=== PATIENT | female | born 1990 | race Caucasian/White ===

== ENCOUNTER 2019-08-15 10:24 | Outpatient (CLI) | payer BC, SELFPAY ==
--- NOTE | 2019-08-15 10:39 | XRR_ITS ---
PROCEDURE INFORMATION: Exam: XR Right Foot Complete Exam date and time: 08/15/2019 10:53 AM Age: 28 years old Clinical indication: Pain; Heel; Right; Additional info: R heel pain x 6 months TECHNIQUE: Imaging protocol: XR Right foot. Views: Frontal, lateral, and oblique views. COMPARISON: No relevant prior studies available. FINDINGS: Bones/joints: A small plantar calcaneal ossified spur is present. A bipartite medial sesamoid of the first metatarsophalangeal joint is present, a normal variant. Soft tissues: Normal. XR/XR foot RT min 3V* [id number] IMPRESSION: Plantar calcaneal spur.
== END 2019-08-15 10:25 | disposition home or self-care (01) ==
LOC: RAD 10:29
PROVIDERS: Family Provider Family Medicine; PCP Family Medicine; Visit Provider Nurse Practitioner Family
DX: M77.31 Calcaneal spur, right foot (principal); M79.671 Pain in right foot
CPT/HCPCS: 73630

== ENCOUNTER → 2020-05-30 14:51 | Outpatient (BNVA) | payer BC, SELFPAY | PROVIDERS: Family Provider Family Medicine; PCP Family Medicine; Visit Provider Obstetrics & Gynecology | DX: Z32.01 Encounter for pregnancy test, result positive (principal) | CPT/HCPCS: 81025 ==

== ENCOUNTER → 2020-06-06 14:12 | Outpatient (BNVA) | payer BC, SELFPAY | PROVIDERS: Family Provider Family Medicine; PCP Family Medicine; Visit Provider Obstetrics & Gynecology | DX: Z34.81 Encounter for supervision of other normal pregnancy, first trimester (principal) | CPT/HCPCS: 84315; 87086 ==

== ENCOUNTER → 2020-06-07 10:50 | Outpatient (BNVA) | payer BC, SELFPAY | PROVIDERS: Family Provider Family Medicine; PCP Family Medicine; Visit Provider Obstetrics & Gynecology | DX: Z34.90 Encounter for supervision of normal pregnancy, unspecified, unspecified trimester (principal) | CPT/HCPCS: 82950 ==

== ENCOUNTER → 2020-06-12 08:40 | Outpatient (BNVA) | payer BC, SELFPAY | PROVIDERS: Family Provider Family Medicine; PCP Family Medicine; Visit Provider Obstetrics & Gynecology | DX: Z34.01 Encounter for supervision of normal first pregnancy, first trimester (principal) | CPT/HCPCS: 80307; 84315; 84443; 85027; 86592; 86762; 86803; 86850; 86900; 87086; 87340; 87806 ==

== ENCOUNTER → 2020-06-27 14:55 | Outpatient (BNVA) | payer BC, SELFPAY | PROVIDERS: Family Provider Family Medicine; PCP Nurse Practitioner Family; Visit Provider Obstetrics & Gynecology | DX: Z34.00 Encounter for supervision of normal first pregnancy, unspecified trimester (principal); Z12.4 Encounter for screening for malignant neoplasm of cervix | CPT/HCPCS: 84315; 87491; 87591; 88175 ==

== ENCOUNTER → 2020-07-18 13:04 | Outpatient (BNVA) | payer BC, SELFPAY | PROVIDERS: Family Provider Family Medicine; PCP Nurse Practitioner Family; Visit Provider Obstetrics & Gynecology | DX: Z34.01 Encounter for supervision of normal first pregnancy, first trimester (principal) | CPT/HCPCS: 81000; 87086 ==

== ENCOUNTER → 2020-07-26 13:57 | Outpatient (BNVA) | payer BC, SELFPAY | PROVIDERS: Family Provider Family Medicine; PCP Nurse Practitioner Family; Visit Provider Nurse Practitioner Women's Health | DX: Z34.01 Encounter for supervision of normal first pregnancy, first trimester (principal) | CPT/HCPCS: 84315; 87086 ==

== ENCOUNTER → 2020-08-16 13:57 | Outpatient (BNVA) | payer BC, SELFPAY | PROVIDERS: Family Provider Family Medicine; PCP Nurse Practitioner Family; Visit Provider Obstetrics & Gynecology | DX: O26.899 Other specified pregnancy related conditions, unspecified trimester (principal); N89.8 Other specified noninflammatory disorders of vagina; Z3A.00 Weeks of gestation of pregnancy not specified | CPT/HCPCS: 83986; 84315; 87210 ==

== ENCOUNTER → 2020-09-19 10:08 | Outpatient (BNVA) | payer BC, SELFPAY | PROVIDERS: Family Provider Family Medicine; PCP Nurse Practitioner Family; Visit Provider Obstetrics & Gynecology | DX: Z34.02 Encounter for supervision of normal first pregnancy, second trimester (principal) | CPT/HCPCS: 84315; 87086 ==

== ENCOUNTER → 2020-10-16 08:30 | Outpatient (BNVA) | payer BC, SELFPAY | PROVIDERS: Family Provider Family Medicine; PCP Nurse Practitioner Family; Visit Provider Obstetrics & Gynecology | DX: Z34.02 Encounter for supervision of normal first pregnancy, second trimester (principal) | CPT/HCPCS: 82950; 84315; 85025 ==

== ENCOUNTER 2020-12-01 09:40 | Outpatient (CLI) | payer BC, SELFPAY ==
[2020-12-01] VITALS (7 sets, daily range): BP systolic 132–157; BP diastolic 80–95; PULSE 95–125; RESP 18; TEMP 36.8; BMI 42.5
[2020-12-01 11:00] LABS: Urine Appearance Hazy (CLEAR); Urine Color Yellow (Yellow); pH Urine 6 (5-7)
[2020-12-01 11:01] LABS: Bilirubin Urine Neg (Negative); Blood Urine Trace (Negative); Glucose Urine UA Norm (Normal); Ketones Urine Negative (Negative); Leukocyte Esterase Urine 2+ (Negative); Nitrate Urine Negative (Negative); Protein Urine Neg (Negative); Urobilinogen Urine 1 mg/dL (Negative)
[2020-12-01 11:02] LABS: Bacteria Urine 2+ /hpf; Mucus Urine 1+ /hpf; RBC Urine 0-4 /hpf (0-2); Squamous Epithelial Cell Urine 15-25 /hpf (0-5); WBC Urine 40-55 /hpf (0-5)
[2020-12-01 11:03] LABS: Add Urine Culture? No
[2020-12-01 11:04] LABS: Urine Creatinine 182 mg/dL (28-217)
[2020-12-01 11:05] LABS: UPRO/UCREAT Ratio 0.19 mg/mg CR; Urine Protein Random 34 mg/dL
--- NOTE | 2020-12-01 11:10 | PM.ACPR ---
Procedure/Consent Procedure Narrative: [place]STRESS TEST: [place] [facility] [place] Indication: 30-year-old 1 para 0 at 35 weeks and 0 days Date and time of test: Baseline: 145 Variability: Moderate variability Accelerations: Accelerations present Decelerations: No decelerations Tocometry: No contractions INTERPRETATION: NST reactive, continue kick counts
== END 2020-12-01 11:30 | disposition home or self-care (01) ==
LOC: OPOB 09:50 → OBGYN 09:51
PROVIDERS: Family Provider Family Medicine; PCP Nurse Practitioner Family; Visit Provider Obstetrics & Gynecology
DX: O36.8193 Decreased fetal movements, unspecified trimester, fetus 3 (principal); Z3A.35 35 weeks gestation of pregnancy
CPT/HCPCS: 59025; 81001; 82570; 84156; 99211

== ENCOUNTER → 2020-12-05 08:00 | Outpatient (BNVA) | payer BC, SELFPAY | PROVIDERS: Family Provider Family Medicine; PCP Nurse Practitioner Family; Visit Provider Obstetrics & Gynecology | DX: Z34.90 Encounter for supervision of normal pregnancy, unspecified, unspecified trimester (principal); L29.9 Pruritus, unspecified | CPT/HCPCS: 80053; 82239; 84315 ==

== ENCOUNTER → 2020-12-27 09:08 | Outpatient (BNVA) | payer BC, SELFPAY | PROVIDERS: Family Provider Family Medicine; PCP Nurse Practitioner Family; Visit Provider Obstetrics & Gynecology | DX: Z34.02 Encounter for supervision of normal first pregnancy, second trimester (principal) | CPT/HCPCS: 87635 ==

== ENCOUNTER 2020-12-30 18:52 | Inpatient (IN) | payer BC, SELFPAY ==
[2020-12-30] VITALS (9 sets, daily range): BP systolic 127–176; BP diastolic 75–94; PULSE 81–109; RESP 17; BMI 44.6
[2020-12-30] MEDS: lactated ringers 1,000 ML 125 ML IV (20:40)
[2020-12-30 20:41] LABS: Add Urine Microscopic? NO; Charge for UA Resulting for Rev
[2020-12-30 20:54] LABS: Basophils % 0.1 %; Eosinophils % 0.4 %; Hemoglobin 12.4 g/dL (11.5-15.3); Lymphocytes # 1.7 10^3/uL (0.8-4.8); Lymphocytes % 16.4 %; Mean Corpuscular HGB Conc 33.5 g/dL (30.0-36.0); Mean Corpuscular Hemoglobin 30.1 pg (28.0-34.0); Mean Corpuscular Volume 89.8 fL (81-99); Monocytes # 0.5 10^3/uL (0.2-0.9); Monocytes % 4.5 %; Neutrophils # 7.98 10^3/uL (1.8-7.7); Nucleated Red Blood Cells % 0 %; Platelet Count 249 10^3/cmm (130-400); Red Blood Count 4.12 10^6/uL (4.1-5.3); Red Cell Distribution Width 13.5 % (12.1-15.1); White Blood Count 10.2 10^3/uL (4.0-10.0)
[2020-12-30 21:00] LABS: Bilirubin Urine Neg (Negative); Blood Urine Neg (Negative); Glucose Urine UA Norm (Normal); Ketones Urine Negative (Negative); Leukocyte Esterase Urine Negative (Negative); Nitrate Urine Negative (Negative); Protein Urine Neg (Negative); Urine Appearance Clear (CLEAR); Urine Color Yellow (Yellow); Urobilinogen Urine Norm (Negative); pH Urine 6 (5-7)
[2020-12-30 21:07] LABS: Urine Creatinine 44 mg/dL (28-217); Urine Protein Random 7 mg/dL
[2020-12-30 21:08] LABS: UPRO/UCREAT Ratio 0.16 mg/mg CR
[2020-12-30 21:15] LABS: Alanine Aminotransferase 22 U/L (0-33); Albumin Level 3.4 g/dL (3.5-5.2); Alkaline Phosphatase 123 IU/L (35-105); Aspartate Amino Transferase 22 U/L (0-32); Blood Urea Nitrogen 9 mg/dL (6-20); Calcium 9.4 mg/dL (8.5-10.5); Carbon Dioxide 20 mmol/L (22-29); Chloride 105 mmol/L (98-107); Globulin 2.7 g/dL (1.3-4.6); Glomerular Filtration Rate 116.6 mL/min (90-130); Glucose 87 mg/dL (65-115); Osmolality Calculated 286 mOsm/kg (285-295); Sodium 139 mmol/L (136-145); Total Bilirubin 0.2 mg/dL (0.15-1.2); Total Protein 6.1 g/dL (6.6-8.7); Uric Acid 5.5 mg/dL (2.4-5.7)
[2020-12-30 21:19] LABS: Anion Gap 18.2 (5-19); Potassium 4.2 mmol/L (3.5-5.1)
[2020-12-30] MEDS: alum-mag-hydroxide-sime 30 mL UDC PO (21:22)
[2020-12-30] MEDS: ampicillin 2,000 MG in sodium chloride 0.9% (plus) 50 ML 100 MG IV (21:22)
[2020-12-30] MEDS: miSOPROStol 100 mcg tablet 25 MCG VAGINAL (22:18)
[2020-12-31] VITALS (98 sets, daily range): BP systolic 110–158; BP diastolic 56–100; PULSE 60–134; RESP 16–17; TEMP 36.4–37.2; O2SAT 97–100
[2020-12-31] MEDS: ampicillin 1,000 MG in sodium chloride 0.9% (plus) 50 ML 100 MG IV ×6 (01:23→22:11)
[2020-12-31] MEDS: lactated ringers 1,000 ML 125 ML IV ×3 (02:22→23:07)
[2020-12-31] MEDS: oxytocin 30 UNIT/500 ML BAG IV (08:30)
[2020-12-31] MEDS: alum-mag-hydroxide-sime 30 mL UDC PO (09:59)
--- NOTE | 2020-12-31 10:52 | P.ANESASSM_ITS ---
Pre-Anesthetic Assessment Pre-Anesthetic Assessment: Height/Weight: Height 1.75 m Weight 136.985 kg Pulse Resp BP Pulse Ox 85 17 125/59 99 12/31/20 10:35 12/31/20 08:50 12/31/20 10:35 12/31/20 10:23 Preop Diagnosis: IUP Was Beta Milind taken within 24 hours: N/A Was Clonidine taken within 24 hours: N/A Social: Social History: No alcohol and No tobacco Exam: Pre-Anes Outpt Exam: alert, oriented x 3, clear to auscultation bilaterally and regular rate & rhythm Airway: Submandibular: WNL Cervical ROM: WNL MP: 2 Dentition: Full Additional comments: Braces Metabolic: Metabolic: Morbid obesity Anesthetic Plan: ASA status: 2 Anesthesia: Regional (specify below) (Labor epidural) Risk of > 500 ml blood loss (7ml/kg in children): No Meds/Allergies Current Medications: Current Medications Generic Name Dose Route Start Last Admin Trade Name Freq PRN Reason Stop Dose Admin Al Hydrox/Mg [place] x/Simethicone 30 ml 12/30/20 19:44 12/31/20 09:59 Tigc-Wrz-Ksxljyo de-Yoana 30 Ml Udc PO 30 ml Q4H PRN Administration INDIGESTION Lactated Ringer's 1,000 mls @ 125 m ls/hr 12/30/20 19:44 12/31/20 05:26 Lactated Ringers IV 125 mls/hr .Q8H PRN Infusion LABOR INDUCTION Ampicillin Sodium 1,000 mg/ 50 mls @ 100 mls/ hr 12/30/20 23:45 12/31/20 09:49 Sodium Chloride IV 100 mls/hr Q4H BERTRAND Administration Protocol Oxytocin 30 unit in 500 ml s @ 1 mls/hr 12/31/20 06:41 12/31/20 08:45 Pitocin IV 3 milliunit/min .Q24H PRN 3 mls/hr LABOR INDUCTION Titration Protocol 1 MILLIUNIT/MIN PFSH Anesthesia PFSH: Medical History Infertility States that she has been trying to get since 2012 and underwent evaluation in [address] Nolan with multiple test that were all negative. She finally gave up on trying to get which is when she go t in 2020. No pertinent past medical history Denies diabetes, asthma, hypertension, seizures, DVT/PE. PMD: Polina Francis PCOS (polycystic ovarian syndrome) Diagnosed in 2014---reports she was diagnosed on an ultrasound in Dr. Nolan's office in [place].. This is a questionable diagnosis because she states she is always had regular 30-day cycles. We will reassess this Surgical History History of tonsillectomy Age of 1 Family History Grandfather Colon cancer Paternal-- Dx age 72 Grandmother Diabetes Maternal Mother Hypertension Denies family history of Ovarian cancer Heart disease Breast cancer Uterine cancer Thyroid disease Stroke Social History Smoking and tobacco status: never smoked Alcohol intake: never Female Reproductive History: : 1 Data Anesthesia CBC & Chem 7: 12/30/20 20:10 12/30/20 20:10 Other Labs: Laboratory Results - last 48 hr 12/30/20 12/30/20 12/30/20 20:10 20:10 20:10 WBC 10.2 H RBC 4.12 Hgb 12.4 Hct 37.0 MCV 89.8 MCH 30.1 MCHC 33.5 RDW 13.5 Plt Count 249 MPV 11.0 H Neut % (Auto) 78.0 Lymph % (Auto) 16.4 [place] % (Auto) 4.5 Eos % (Auto) 0.4 Baso % (Auto) 0.1 Neut # (Auto) 7.98 H Lymph # (Auto) 1.7 [place] # (Auto) 0.5 Eos # (Auto) 0.0 Baso # (Auto) 0.0 Nucleated RBC % (auto) 0 Nucleated RBCs # 0.0 Sodium 139 Potassium 4.2 Chloride 105 Carbon Dioxide 20 L Anion Gap 18.2 BUN 9 Creatinine 0.6 GFR Calculation 116.6 Glucose 87 Calculated Osmolality 286 Uric Acid 5.5 Calcium 9.4 Total Bilirubin 0.2 AST 22 ALT 22 Alkaline Phosphatase 123 H Total Protein 6.1 L Albumin 3.4 L Globulin 2.7 Urine Color Urine Appearance Urine pH Ur Specific [place] Urine Protein Urine Glucose (UA) Urine Ketones Urine Blood Urine Nitrate Urine Bilirubin Urine Urobilinogen Ur Leukocyte Esterase U Random Total Protein Urine Creatinine Protein/Creatinin Ratio Blood Type A Positive Rho(D) Type Positive / 4+ Antibody Screen Negative 12/30/20 12/30/20 20:35 20:35 WBC RBC Hgb Hct MCV MCH MCHC RDW Plt Count MPV Neut % (Auto) Lymph % (Auto) [place] % (Auto) Eos % (Auto) Baso % (Auto) Neut # (Auto) Lymph # (Auto) [place] # (Auto) Eos # (Auto) Baso # (Auto) Nucleated RBC % (auto) Nucleated RBCs # Sodium Potassium Chloride Carbon Dioxide Anion Gap BUN Creatinine GFR Calculation Glucose Calculated Osmolality Uric Acid Calcium Total Bilirubin AST ALT Alkaline Phosphatase Total Protein Albumin Globulin Urine Color Yellow Urine Appearance Clear Urine pH 6 Ur Specific [place] 1.020 Urine Protein Neg Urine Glucose (UA) Norm Urine Ketones Negative Urine Blood Neg Urine Nitrate Negative Urine Bilirubin Neg Urine Urobilinogen Norm Ur Leukocyte Esterase Negative U Random Total Protein 7 Urine Creatinine 44 Protein/Creatinin Ratio 0.16 Blood Type Rho(D) Type Antibody Screen Cardiac Studies: No Data to Display
--- NOTE | 2020-12-31 11:45 | ANES.PROC ---
Anesthesia Procedures Procedure/Date: 12/31/20 Epidural: Time Out Performed: Yes Consents Signed: Procedure Consent Consent: requested by attending/covering physician, from patient, risks and benefits reviewed and patient agrees to proceed Lumbar Level: L3-L4 Epidural position: sitting Epidural procedure: sterile prep of area, 1% lidocaine to numb the area, 18 g needle, neg for paresthesia, test dose given, 1.5% xylocaine 1:200k epi, placed PCEA, no systemic response, sterile dressing applied and 0.2% Ropiavacaine @ mls/hr (13) Additional Comments: PETE at 7cm, cath at 12cm, no bolus given.
--- NOTE | 2020-12-31 13:30 | P.PN_ITS ---
Subjective Subjective: Interval history: Subjective- Ms. Herrera is doing okay today. She is comfortable after the epidural and feels much better as she was nervous about getting the epidural. She denies any problems today. She hopes that the medication will work to help her get into labor. She has no shortness of breath chest pain, visual changes. She feels like her blood pressure may be elevated from an anxiety standpoint but she is very worried about the whole process. Objective- Blood pressure-138/74 mmHg Pulse-88 beats per minute Temperature-98.4 Fahrenheit Abdomen-gravid, nontender, soft Sterile vaginal exam-4 cm, 50%, -2 station, artificial rupture membranes performed EFM-135, moderate variability, accelerations present, no decelerations Handley-contractions every 2 to 3 minutes Assessment/plan: 30-year-old 1 para 0 at 39 weeks and 2 days gestation undergoing induction of labor -GBS bacteriuria-continue antibiotics -Induction of labor status post Cytotec, currently undergoing Pitocin induction with Pitocin at 20 units with regular contractions. Artificial rupture of membranes performed today. We will reassess in 2 hours for cervical change. -Continuous monitoring -Plan of care reviewed with patient all her questions were answered to her satisfaction Vitals/I&O/Wt Last Vital Signs Temp 97.3 F L 01/01/21 11:17 Pulse 113 H 01/01/21 14:35 Resp 17 12/31/20 20:48 BP 136/77 01/01/21 14:35 Pulse Ox 94 01/01/21 13:01 12/31/20 01/01/21 01/01/21 22:59 06:59 14:59 Intake Total 329.017 / 7124.224 5137.983 / 4475.333 300 / 300 Output Total 1400 / 1400 2200 / 3600 Balance -1070.983 / -18.650 893.983 / 875.333 300 / 300 Weight last 48 hrs Weight 302 lb Physical Exam Urinary Catheter Management^: Inman: Cath Placed During This Visit: yes Reason for Continuing Indwelling Catheter: Required Immobilization for Trauma or Surgery or Anesthesia Urinary Catheter Date of Insertion: 12/31/20 Urinary Catheter Time of Insertion: 10:29 Data : 12/30/20 20:10 12/30/20 20:10 Attestations Medical Necessity Statement*: Patient needs to stay for delivery and recovery Coding Level of Care Code Acute Printing And Stamping Supervisor for g Bria
[2020-12-31] MEDS: calcium carbonate 500 mg Chew Tablet PO (19:54)
[2021-01-01] VITALS (99 sets, daily range): BP systolic 114–163; BP diastolic 55–110; PULSE 84–118; RESP 16–17; TEMP 36.3–37.1; O2SAT 91–100
[2021-01-01] MEDS: ampicillin 1,000 MG in sodium chloride 0.9% (plus) 50 ML 100 MG IV (01:34)
--- NOTE | 2021-01-01 05:05 | PC.NURSE ---
TALK WITH PATIENT Nurse to room to discuss options with patient. Educated patient on status and option to continue to labor and assess change in a couple hours, or to proceed with at this time. Patient requested 10 minutes to discuss with .
--- NOTE | 2021-01-01 05:18 | PC.NURSE ---
RN called into patient room and notified that patient would like to proceed with at this time. Will update
[2021-01-01] MEDS: lactated ringers 1,000 ML 999 ML IV (05:47)
--- NOTE | 2021-01-01 06:03 | PC.NURSE ---
Dr. Hernandez called and notified that she was needed in OR for delivery.
[2021-01-01] MEDS: citric acid-sodium citrate 30 mL UDC PO (06:04)
[2021-01-01] MEDS: famotidine 20 mg/2 mL INJ IVP (06:04)
[2021-01-01] MEDS: metoclopramide 5 mg/mL SDV 2 mL 10 MG IV (06:04)
--- NOTE | 2021-01-01 06:06 | PC.NURSE ---
abdomen prepped with chlorhexadine wipes.
[2021-01-01] MEDS: ceFAZolin 3,000 MG in sodium chloride 0.9% (100 ml) 100 ML 200 MG IV (06:07)
[2021-01-01] MEDS: azithromycin 500 MG in sodium chloride 0.9% 250 ML 250 MG IV (06:09)
--- NOTE | 2021-01-01 06:11 | PC.NURSE ---
Anesthesia at bedside dosing epidural for .
--- NOTE | 2021-01-01 08:02 | ANES.PAUD2 ---
Pre-Anesthetic Update Pre-Anesthetic Assessment: Date of Surgery/Procedure: 01/01/21 Preop Diagnosis: IUP Any changes to Pre-Anesthetic Assessment?: No Labs Last 48hrs: Laboratory Results - last 48 hr 12/30/20 12/30/20 12/30/20 20:10 20:10 20:10 WBC 10.2 H RBC 4.12 Hgb 12.4 Hct 37.0 MCV 89.8 MCH 30.1 MCHC 33.5 RDW 13.5 Plt Count 249 MPV 11.0 H Neut % (Auto) 78.0 Lymph % (Auto) 16.4 [place] % (Auto) 4.5 Eos % (Auto) 0.4 Baso % (Auto) 0.1 Neut # (Auto) 7.98 H Lymph # (Auto) 1.7 [place] # (Auto) 0.5 Eos # (Auto) 0.0 Baso # (Auto) 0.0 Nucleated RBC % (a uto) 0 Nucleated RBCs # 0.0 Sodium 139 Potassium 4.2 Chloride 105 Carbon Dioxide 20 L Anion Gap 18.2 BUN 9 Creatinine 0.6 GFR Calculation 116.6 Glucose 87 Calculated Osmolal ity 286 Uric Acid 5.5 Calcium 9.4 Total Bilirubin 0.2 AST 22 ALT 22 Alkaline Phosphata se 123 H Total Protein 6.1 L Albumin 3.4 L Globulin 2.7 Urine Color Urine Appearance Urine pH Ur Specific Gravit y Urine Protein Urine Glucose (UA) Urine Ketones Urine Blood Urine Nitrate Urine Bilirubin Urine Urobilinogen Ur Leukocyte Hermelinda ase U Random Total Pro tein Urine Creatinine Protein/Creatinin Ratio Blood Type A Positive Rho(D) Type Positive / 4+ Antibody Screen Negative 12/30/20 12/30/20 20:35 20:35 WBC RBC Hgb Hct MCV MCH MCHC RDW Plt Count MPV Neut % (Auto) Lymph % (Auto) [place] % (Auto) Eos % (Auto) Baso % (Auto) Neut # (Auto) Lymph # (Auto) [place] # (Auto) Eos # (Auto) Baso # (Auto) Nucleated RBC % (a uto) Nucleated RBCs # Sodium Potassium Chloride Carbon Dioxide Anion Gap BUN Creatinine GFR Calculation Glucose Calculated Osmolal ity Uric Acid Calcium Total Bilirubin AST ALT Alkaline Phosphata se Total Protein Albumin Globulin Urine Color Yellow Urine Appearance Clear Urine pH 6 Ur Specific Gravit y 1.020 Urine Protein Neg Urine Glucose (UA) Norm Urine Ketones Negative Urine Blood Neg Urine Nitrate Negative Urine Bilirubin Neg Urine Urobilinogen Norm Ur Leukocyte Hermelinda ase Negative U Random Total Pro tein 7 Urine Creatinine 44 Protein/Creatinin Ratio 0.16 Blood Type Rho(D) Type Antibody Screen Vitals: Temperature 98.6 F 01/01/21 02:09 Temperature Source Oral 01/01/21 02:09 Pulse Rate 107 H 01/01/21 05:52 Pulse Rhythm 12/30/20 20:00 Pulse Strength 2+ Slightly Dimin ished 12/30/20 20:00 Respiratory Rate 17 12/31/20 20:48 Respiratory Effort Non-Labored 12/30/20 20:00 Respiratory Depth Normal 12/30/20 20:00 Respiratory Patter n 12/30/20 20:00 Blood Pressure 139/96 01/01/21 05:52 Pulse Oximetry 99 12/31/20 10:23 Oxygen Delivery Me thod 12/31/20 22:25 Exam: Pre-Anes Outpt Exam: alert, oriented x 3, clear to auscultation bilaterally and regular rate & rhythm Additional Exam Findings (including area of procedure): FTP to C/S with epidural Cardiac Studies: No Data to Display
--- NOTE | 2021-01-01 08:17 | PC.NURSE ---
in PACU, pt arrousing, on 2L O2, pt v/s WNL
--- NOTE | 2021-01-01 08:29 | P.OP_ITS ---
Operative Report Date of procedure: January 01, 2021 OPERATIVE REPORT Date of surgery:01/01/2021 Date of dictation: 01/01/2021 Preoperative diagnosis: 30-year-old 1 para 0 at 39 weeks and 3 days, arrest of dilation and descent, morbid obesity with a BMI of 44.6, GBS bacteriuria, macrosomia Postoperative diagnosis/findings: Normal tubes and ovaries bilaterally, baby girl Martina weighing 8 pounds 3 ounces with Apgars of 1 8 and 9 at 1 5 and 10 minutes. Vacuum delivery. Procedure done: Primary low transverse delivery via Pfannenstiel incision Specimens removed/disposition of specimens: Placenta and cord which were discarded Surgeon: Dr. Nicho Aguilera compliance assistant: Clover Urena Mandy Anesthesia: Epidural anesthesia with LMA Estimated blood loss: 900 ml Intravenous fluids: Thousand 500 mL Urine output: 100 mL of blood-tinged urine at the end of procedure similar to what was there prior to the start of procedure. Medications: Single dose of intramuscular Hemabate, Surgicel, rest as per anesthesia records Complications: None, both baby and mother were left to recover in a stable condition Indication for surgery: Ms. Silverman is a 30-year-old 1 para 0 at 39 weeks and 1 day who presented to labor and delivery on 12/30/2020 at 7 PM for scheduled induction of labor. On initial presentation she was closed thick and high. tracing was category 1 and she was having contractions every 5 to 7 minutes but did not know she was having them. She was admitted and because of GBS bacteriuria started on antibiotics for GBS prophylaxis. Lab work done was within normal limits. She had couple of elevated blood pressures as she was very anxious and preeclamptic work-up was done and negative with the protein creatinine ratio 0.16. Repeat blood pressures were normal and she never had any severe elevations. Induction was started with Cytotec which was placed at 10 PM. For as needed she had made cervical change to 1 to 2 cm, 50% and -3 station and was xuan every 2 to 3 minutes and a little uncomfortable. She was observed for the next 4 hours and made some cervical change to 3 cm 50% and -2 station. She was given a break for a couple of hours and induction was continued with Pitocin started at 8:30 AM titrate to maximum of 20 mIU. She tolerated this well and was a little uncom fortable and worried about pain getting worse and an epidural was placed per her request. Throughout this time tracing remained category 1. On exam at 1 PM she was noted to be 4 cm 50% and -2 station and artificial rupture of membranes was performed. She had clear fluid and the head was well applied. Exam done at 7:30 PM showed that she was 4 to 5 cm 50% and -2 station. Decision was made to give a therapeutic rest and Pitocin was turned off she was allowed to eat and Pitocin restarted at about 10:30 PM and was titrated to a maximum of 14 mIU and she had regular contractions every 1 to 2 minutes. She made a little but no cervical change to 6 cm 50% and -2 station and overall had a category 1 tracing other than having early decelerations. She remained 6 cm for 6 hours with no further descent or dilation and based on this decision was made to proceed with delivery. Risks benefits and alternatives discussed with patient and she desired to proceed with delivery. tracing was pelvis category 1. -Consents were signed and patient was taken to the operating room. It was noted that urine was blood-tinged likely secondary from the pressure of the head prior to the start of procedure. PROCEDURE: After consent was obtained, patient was taken to the operating room where epidural anesthesia was bolused without any difficulty she was placed supine on the table with a left lateral wedge. Inman catheter and SCDs were already in place and urine was noted to be mildly blood-tinged at the start of procedure.. The abdomen was shaved and then prepped with prep. Vaginal prep was also performed. She was draped in a sterile fashion. After checking adequacy of anesthesia, a Pfannenstiel incision was made 2 cm above the pubic symphysis. The incision was carried down to the fascia using the Bovie. The fascia was nicked in the midline and the fascial incision was extended laterally using curved Mayos. The inferior aspect of the fascia was grasped with zac clamps and dissected off from the underlying rectus muscle. This was repeated again superiorly without any difficulty. The rectus muscle was . A wilder was made in the peritoneum and the peritoneal incision was carried inferiorly taking care to proceed in layers so as to avoid the bladder. The peritoneal incision was extended superiorly as well. No adhesions were noted from the uterus to the anterior abdominal wall. The uterus was noted to be rotated to the left. The bladder peritoneum was grasped with smooth forceps a bladder flap was created. the bladder blade was replaced thus protecting the bladder. A LOW TRANSVERSE UTERINE INCISION was made with a scalpel till the amniotic membrane was reached. The uterine incision was then extended laterally using bandage scissors. Amniotomy was done with Allis clamps and clear amniotic fluid was drained. The head of the baby was brought up to the level of the incision and was unable to be delivered. Vacuum was applied and there was 1 pop off. Vacuum was applied again and with this head was delivered without any difficulty. The remainder of body followed without any difficulty. The nose and mouth were suctioned, the umbilical cord was clamped and cut and the baby was handed off to the waiting Doctor- Dr. Hernandez. The placenta was delivered spontaneously with fundal massage. It was noted to be intact and was discarded. . The uterus was exteriorized. The interior of the uterus was cleaned of all clot and debris and was noted to be very boggy. Uterine massage was performed and she was given a single dose of Hemabate and with this the uterine tone improved The uterine incision was closed with 0 Vicryl in a running interlocking manner. Good hemostasis and reapproximation was obtained. Lhdutk-at-dosfa sutures were placed to obtain hemostasis. She had a 1 cm extension on the left side inferiorly which was repaired without any difficulty. Good hemostasis was achieved. The abdomen was irrigated and the gutters were cleaned of clot and debris. Normal tubes and ovaries were noted bilaterally. The uterus was placed back into the abdomen and uterine incision was noted to be hemostatic. Surgicel was placed over the uterine incision. The peritoneum was closed with a 2-0 plain in a continuous stitch. The rectus muscle was reapproximated with 2-0 plain suture in a mattress stitch. Good hemostasis was noted in the rectus muscle layer. The fascia was inspected for any defects and none were found and the fascia was closed with 0 Vicryl in continuous stitch. The subcutaneous plane was then irrigated and hemostasis was obtained using the Bovie. The subcutaneous plane was then reapproximated using 2-0 plain suture in a continuous manner. The skin was then closed with 4-0 Monocryl in a subcuticular fashion. Good reapproximation and hemostasis was noted. Steri- Strips were applied. The incision was dressed with Telfa ,ABD and paper tape. The fundus was noted to be firm at the end of the procedure and excess blood was expressed from the vagina. The patient was left to recover in a stable condition. This documentation was created by [employer] commercial food instructor software (known for inherent commercial food instructor error). Every effort was made to assure accuracy of commercial food instructor. Any obvious errors or omissions should be clarified with the author of the document. Pre-op Diagnosis: IUP History History History 1 Term 1 Miscarriages/Ectopic 0 0 Living Children 1 Other History: 1 Para 1001 CDX 1 1---> 01/01/2021--> primary low transverse delivery by Dr. Aguilera at [facility] for arrest of dilation and descent at 7 cm. Baby girl Martina Milner weighing 8 pounds 3 ounces. Left inferior 1 cm extension.
[2021-01-01] MEDS: dextrose 5%-lactated ringers 1,000 ML 125 ML IV (12:00)
[2021-01-01] MEDS: HYDROcodone-acetaminophen 5-325 mg Tablet PO ×2 (14:40→20:39)
--- NOTE | 2021-01-01 14:55 | ANE.PACU2 ---
Inpatient post-anesthesia follow up: Airway intact: Yes Vital signs: Temperature 97.3 F Pulse Rate 114 Respiratory Rate 17 Blood Pressure 131/69 Pulse Oximetry 94 Oxygen Delivery Me thod Room Air Oxygen Flow Rate Fraction of Inspir ed Oxygen Hydration adequate: Yes Nausea and vomiting: No Pain level: 2 Mental status: Baseline
[2021-01-01] MEDS: docusate sodium 100 mg Capsule PO (18:32)
[2021-01-01 20:15] LABS: Hematocrit 28.5 % (37.0-47.0); Hemoglobin 9.6 g/dL (11.5-15.3); Mean Corpuscular HGB Conc 33.7 g/dL (30.0-36.0); Mean Corpuscular Hemoglobin 30.6 pg (28.0-34.0); Mean Corpuscular Volume 90.8 fL (81-99); Mean Platelet Volume 11.1 fL (7.4-10.4); Platelet Count 207 10^3/cmm (130-400); Red Blood Count 3.14 10^6/uL (4.1-5.3); Red Cell Distribution Width 13.8 % (12.1-15.1); White Blood Count 10.7 10^3/uL (4.0-10.0)
[2021-01-01] MEDS: heparin 5,000 unit/mL INJ 1 mL 5000 UNIT SUBCUT (21:09)
[2021-01-01] MEDS: ibuprofen 800 mg tablet PO (21:09)
--- NOTE | 2021-01-01 23:56 | PC.NURSE ---
Patient up to walk in hallway with nurse, tolerated well. Patient walked about 100 feet in hallway, wanted to rest and feed and then would call nurse when she was done to walk again. Patient states that she has been using her IS while awake and was educated on importance of this.
[2021-01-02] VITALS (7 sets, daily range): BP systolic 117–137; BP diastolic 64–90; PULSE 98–120; RESP 17; TEMP 35.9–36.4; O2SAT 97–100
--- NOTE | 2021-01-02 01:32 | PC.NURSE ---
Patient called nurse to get up and walk. Patient walked 4 laps around unit in approximately 20-25 minutes and stayed up in room for about 30 more minutes after walking brushing teeth, changing infants diaper, and using IS. Denies any pain at this time and states that it feels good to be up in room. Assisted back to bed and holding infant. at bedside. SCD's in place.
[2021-01-02] MEDS: heparin 5,000 unit/mL INJ 1 mL 5000 UNIT SUBCUT ×3 (04:49→20:31)
--- NOTE | 2021-01-02 06:20 | PM.PN ---
Subjective Subjective: Interval history: SUBJECTIVE: Ms. Silverman is doing well today. She is just a little tired. States that she is a little shaky and thinks it is because she is cold. Denies fever, chills, shortness of breath, chest pain, nausea, vomiting. Is tolerating clears without any difficulty. She has been ambulating well. Wants the catheter to stay in the morning so she can sleep a little bit better. She is finding breast-feeding a little easier now. She states the pain is well controlled with p.o. pain medication and she really likes the abdominal binder. OBJECTIVE/PHYSICAL EXAM: Gen.: No acute distress Heart: S1-S2 heard, regular rate and rhythm Lungs: Clear to auscultation bilaterally Abdomen: Soft, fundus firm below umbilicus, tenderness around incision. Incision: Clean dry and intact with dressing in place Legs: No calf tenderness, +1 bilateral pitting pedal edema. SCDs in place ASSESSMENT AND PLAN: 30-year-old 1 para 1 status post primary delivery, postoperative day #1 -Continue routine care--encourage ambulation and incentive spirometer use -P.o. pain medication as needed -Follow-up CBC at 2 PM today and if stable will discontinue IV--hopefully she has passed gas by then -Full liquid diet for now until passes gas and then advance to regular diet -Anticipate discharge home tomorrow if she continues to do well -Bonding well with baby-obiee consultant today -Urine output adequate-vital signs normal except for mild tachycardia which seems to be resolving now. -Continue to monitor vital signs -SCDs and heparin for DVT prophylaxis-warning signs reviewed with patient. Vitals/I&O/Wt Last Vital Signs Temp 97.5 F L 01/02/21 04:16 Pulse 98 01/02/21 04:16 Resp 17 01/01/21 22:50 BP 137/79 01/02/21 04:16 Pulse Ox 94 01/01/21 13:01 01/01/21 01/01/21 01/02/21 14:59 22:59 06:59 Intake Total 900 / 900 5 / 2004 900 / 2905 Output Total 500 / 500 100 / 600 3900 / 4500 Balance 400 / 400 1005 / 1405 -3000 / -1595 Physical Exam Urinary Catheter Management^: Inman: Cath Placed During This Visit: yes Reason for Continuing Indwelling Catheter: Accurate Measurement of Urinary Output in Critically Ill Patients Urinary Catheter Date of Insertion: 12/31/20 Urinary Catheter Time of Insertion: 10:29 Data : 01/01/21 20:00 12/30/20 20:10 Attestations Medical Necessity Statement*: Patient needs to stay to recover from surgery Coding Level of Care Code Acute Napper Grinder for Elle Fraser
[2021-01-02] MEDS: HYDROcodone-acetaminophen 5-325 mg Tablet PO ×4 (07:00→22:16)
[2021-01-02] MEDS: docusate sodium 100 mg Capsule PO ×2 (09:15→18:27)
[2021-01-02] MEDS: prenatal vitamin Capsule 1 CAP PO (09:15)
[2021-01-02] MEDS: ibuprofen 800 mg tablet PO ×3 (09:15→21:05)
[2021-01-02] MEDS: ferrous sulfate EC 325 mg Tablet PO ×2 (09:16→18:28)
[2021-01-02 15:07] LABS: Basophils % 0.1 %; Eosinophils % 0.5 %; Hematocrit 28.1 % (37.0-47.0); Hemoglobin 9.1 g/dL (11.5-15.3); Lymphocytes # 1.1 10^3/uL (0.8-4.8); Lymphocytes % 12.1 %; Mean Corpuscular HGB Conc 32.4 g/dL (30.0-36.0); Mean Corpuscular Hemoglobin 30.3 pg (28.0-34.0); Mean Corpuscular Volume 93.7 fL (81-99); Mean Platelet Volume 10.7 fL (7.4-10.4); Monocytes # 0.4 10^3/uL (0.2-0.9); Monocytes % 4.4 %; Neutrophils # 7.23 10^3/uL (1.8-7.7); Nucleated Red Blood Cells % 0 %; Platelet Count 201 10^3/cmm (130-400); Red Cell Distribution Width 13.9 % (12.1-15.1); White Blood Count 8.8 10^3/uL (4.0-10.0)
[2021-01-03] VITALS (8 sets, daily range): BP systolic 122–145; BP diastolic 72–88; PULSE 81–122; RESP 18; TEMP 37.1–37.2; O2SAT 100
[2021-01-03] MEDS: heparin 5,000 unit/mL INJ 1 mL 5000 UNIT SUBCUT (05:31)
--- NOTE | 2021-01-03 06:31 | PM.OBGYDC ---
Discharge Providers SAND CUTTING MACHINE OPERATOR Date of Admission: 12/31/20 06:39 Date of Discharge: 01/03/21 Attending Provider at Admission: Nicho Aleman MD Attending Provider at Discharge: Preoperative diagnosis: 30-year-old 1 para 0 at 39 weeks and 3 days, arrest of dilation and descent, morbid obesity with a BMI of 44.6, GBS bacteriuria, macrosomia Postoperative diagnosis/findings: Normal tubes and ovaries bilaterally, baby girl Martina weighing 8 pounds 3 ounces with Apgars of 1 8 and 9 at 1 5 and 10 minutes. Vacuum delivery. Discharge diagnosis: Status post delivery Morbid obesity Procedure done: Primary low transverse delivery via Pfannenstiel incision Indication for surgery: Ms. Silverman is a 30-year-old 1 para 0 at 39 weeks and 1 day who presented to labor and delivery on 12/30/2020 at 7 PM for scheduled induction of labor. On initial presentation she was closed thick and high. tracing was category 1 and she was having contractions every 5 to 7 minutes but did not know she was having them. She was admitted and because of GBS bacteriuria started on antibiotics for GBS prophylaxis. Lab work done was within normal limits. She had couple of elevated blood pressures as she was very anxious and preeclamptic work-up was done and negative with the protein creatinine ratio 0.16. Repeat blood pressures were normal and she never had any severe elevations. Induction was started with Cytotec which was placed at 10 PM. For as needed she had made cervical change to 1 to 2 cm, 50% and -3 station and was xuan every 2 to 3 minutes and a little uncomfortable. She was observed for the next 4 hours and made some cervical change to 3 cm 50% and -2 station. She was given a break for a couple of hours and induction was continued with Pitocin started at 8:30 AM titrate to maximum of 20 mIU. She tolerated this well and was a little uncomfortable and worried about pain getting worse and an epidural was placed per her request. Throughout this time tracing remained category 1. On exam at 1 PM she was noted to be 4 cm 50% and -2 station and artificial rupture of membranes was performed. She had clear fluid and the head was well applied. Exam done at 7:30 PM showed that she was 4 to 5 cm 50% and -2 station. Decision was made to give a therapeutic rest and Pitocin was turned off she was allowed to eat and Pitocin restarted at about 10:30 PM and was titrated to a maximum of 14 mIU and she had regular contractions every 1 to 2 minutes. She made a little but no cervical change to 6 cm 50% and -2 station and overall had a category 1 tracing other than having early decelerations. She remained 6 cm for 6 hours with no further descent or dilation and based on this decision was made to proceed with delivery. Risks benefits and alternatives discussed with patient and she desired to proceed with delivery. tracing was pelvis category 1. -Consents were signed and patient was taken to the operating room. It was noted that urine was blood-tinged likely secondary from the pressure of the head prior to the start of procedure. HOSPITAL COURSE: She underwent an uncomplicated primary delivery on 01/01/2021. She did well on day 0 and was ambulating well, tolerating regular diet, voiding freely, passing flatus. She was breast-feeding without difficulty and bonding well with her daughter. Pain was well-controlled with by mouth pain medication. She denied nausea, vomiting, fever, chills, shortness of breath, leg pain. She had moderate vaginal bleeding. On day # 1 she continued to do well with stable vital signs and stable hemoglobin at 9.4. Her pulse was in the low 100s with an O2 sat of 99 on room air. She was placed on SCDs and heparin throughout her post delivery course for DVT prophylaxis. She was ambulating well and pain was well controlled. Continue to do well on postoperative day #2 with a stable hemoglobin of 9.1. She was discharged home on day 2 in a stable condition, as she desired early discharge. Warning signs for endometritis, wound infection, mastitis, DVT/PE were reviewed with her. Post delivery activity restrictions were also reviewed with her at all her questions were answered to her satisfaction. We will discuss contraception at her 6-week visit. She will monitor her blood pressure and pulse once a day to ensure that it is returning to normal. EXAM AT DISCHARGE: Gen.: No acute distress Heart: S1-S2 heard, regular rate and rhythm Lungs: Clear to auscultation bilaterally Abdomen: Soft, fundus firm below umbilicus, tenderness around incision. Incision: Clean dry and intact with Steri-Strips. Legs: No calf tenderness, [default value] pedal edema. CONDITION AT DISCHARGE: Stable This documentation was created by [employer] overage shortage and damage clerk software (known for inherent overage shortage and damage clerk error). Every effort was made to assure accuracy of overage shortage and damage clerk. Any obvious errors or omissions should be clarified with the author of the document. Primary Care Provider: LAVERN Pate Reason for Visit Reason for Visit: Macrosomia Information Peripartum Data: Delivery Method: Physical Exam Urinary Catheter Management^: [place]: Cath Placed During This Visit: yes, but has since been removed by the nurse Reason for Continuing Indwelling Catheter: Accurate Measurement of Urinary Output in Critically Ill Patients Urinary Catheter Date of Insertion: 12/31/20 Urinary Catheter Time of Insertion: 10:29 Date Urinary Catheter Removed: 01/02/21 Time Urinary Catheter Discontinued: 08:05 Discharge Data Data Completed and Pending: Labs from last 24 hours 01/02/21 14:45 WBC 8.8 RBC 3.00 L Hgb 9.1 L Hct 28.1 L MCV 93.7 MCH 30.3 MCHC 32.4 RDW 13.9 Plt Count 201 MPV 10.7 H Neut % (Auto) 82.0 Lymph % (Auto) 12.1 [place] % (Auto) 4.4 Eos % (Auto) 0.5 Baso % (Auto) 0.1 Neut # (Auto) 7.23 Lymph # (Auto) 1.1 [place] # (Auto) 0.4 Eos # (Auto) 0.0 Baso # (Auto) 0.0 Nucleated RBC % (a uto) 0 Nucleated RBCs # 0.0 Vitals: Last Vital Signs Temp 97.5 F L 01/02/21 04:16 Pulse 81 01/03/21 03:07 Resp 17 01/02/21 22:00 BP 122/80 01/03/21 03:07 Pulse Ox 100 01/02/21 21:07 Discharge Plan Discharge Patient Disposition: Home Condition: Stable Prescriptions: New hydrocodone-acetaminophen 5-325 mg tablet 1 tab PO Q6H Qty: 25 RF: 0 docusate sodium 100 mg Capsule 100 mg PO BID PRN (Reason: constipation) Qty: 30 RF: 0 ibuprofen 800 mg tablet 800 mg PO Q8H Qty: 30 RF: 0 Continued prenat.vits,bradly,wen-nuzv-wshir Tablet 1 tab PO DAILY RF: 0 (DME) breast pump [Pump In Style Advanced] Device See Rx Instructions .ROUTE .MEDSUPPLY Qty: 1 RF: 0 Discharge Orders: Discharge Order (Routine); Ordered 01/03/21 Ordered By: Nicho Aleman Referrals: Nicho Aleman MD [Physician] - Discharge Diet: Usual diet Discharge Activity: Limit activity as instructed Patient Instructions: Opioid Safety Activity Restrictions/Additional Instructions: Pelvic rest for 6 weeks, no heavy lifting for 6 weeks. Monitor blood pressure/pulse once a day and bring log to first visit 2-week incision check and 6-week visit. Discharge Attestations SAND CUTTING MACHINE OPERATOR Time Spent in Discharge Care*: greater than 30 min Coding Level of Care Code Acute Seismograph Supervisor for Elle Fraser
[2021-01-03] MEDS: HYDROcodone-acetaminophen 5-325 mg Tablet PO ×2 (07:15→12:43)
[2021-01-03] MEDS: ferrous sulfate EC 325 mg Tablet PO (08:51)
[2021-01-03] MEDS: prenatal vitamin Capsule 1 CAP PO (08:51)
[2021-01-03] MEDS: docusate sodium 100 mg Capsule PO (08:51)
[2021-01-03] MEDS: ibuprofen 800 mg tablet PO (08:51)
== END 2021-01-03 13:50 | disposition home or self-care (01) | DRG 787 ==
LOC: OBGYN 19:43
PROVIDERS: Admitting Provider Obstetrics & Gynecology; PCP Nurse Practitioner Family; Visit Provider Obstetrics & Gynecology
PROC: 10D00Z1 Extraction of Products of Conception, Low, Open Approach (ICD-10-PCS; CPT 59514; principal; 2021-01-01 06:15)
DX: O32.4XX0 Maternal care for high head at term, not applicable or unspecified (principal); O98.82 Other maternal infectious and parasitic diseases complicating childbirth; O36.63X0 Maternal care for excessive fetal growth, third trimester, not applicable or unspecified; O76 Abnormality in fetal heart rate and rhythm complicating labor and delivery; O99.214 Obesity complicating childbirth; E66.01 Morbid (severe) obesity due to excess calories; Z3A.39 39 weeks gestation of pregnancy; Z37.0 Single live birth
CPT/HCPCS: 36415; 51702; 59025; 59409; 80053; 81003; 82570; 84156; 84550; 85025; 85027; 86850; 86900; 96372; 96374; 96375; 98960; G0378; J0290; J0456; J0690; J1644; J2274; J2370; J2405; J2765; J2795; J3010; J3490; J7030; J7050

== ENCOUNTER → 2021-07-16 15:30 | Outpatient (BNVA) | payer BC, SELFPAY | PROVIDERS: PCP Nurse Practitioner Family; Visit Provider Obstetrics & Gynecology | DX: Z30.9 Encounter for contraceptive management, unspecified (principal) | CPT/HCPCS: 81025 ==

== ENCOUNTER 2021-10-23 08:26 | Outpatient (CLI) | payer BC, SELFPAY ==
--- NOTE | 2021-10-23 08:40 | XRR_ITS ---
PROCEDURE INFORMATION: Exam: XR Abdomen Exam date and time: 10/23/2021 8:52 AM Age: 31 years old Clinical indication: Patient HX: Abdominal pain for 3 weeks TECHNIQUE: Imaging protocol: XR of the abdomen. Views: 2 Views. Upright and supine views. COMPARISON: No relevant prior studies available. FINDINGS: Gastrointestinal tract: Normal. No bowel dilation. Intraperitoneal space: Normal. No free air. Bones/joints: Unremarkable for age. XR/XR acute abdomen series [id number] IMPRESSION: No acute findings.
== END 2021-10-23 08:27 | disposition home or self-care (01) ==
PROVIDERS: PCP Nurse Practitioner Family; Visit Provider Clinical Nurse Specialist Adult Health
DX: R10.9 Unspecified abdominal pain (principal)
CPT/HCPCS: 74022; 80053; 85025

== ENCOUNTER → 2021-10-25 13:05 | Outpatient (BNVA) | payer BC, SELFPAY | PROVIDERS: PCP Nurse Practitioner Family; Visit Provider Obstetrics & Gynecology | DX: R10.9 Unspecified abdominal pain (principal) | CPT/HCPCS: 76830 ==

== ENCOUNTER 2021-11-07 07:59 | Day surgery (SDC) | payer BC, SELFPAY ==
[2021-11-06 11:58] VITALS: BMI 42.0
[2021-11-07] VITALS (7 sets, daily range): BP systolic 102–153; BP diastolic 50–81; PULSE 73–95; RESP 14–16; TEMP 36.3–37.5; O2SAT 97–98
[2021-11-07] MEDS: sodium chloride 0.9% 1,000 ML 30 ML IV (08:24)
[2021-11-07 08:27] LABS: OR HCG Qualitative Urine Negative (Negative)
[2021-11-07 08:49] LABS: Basophils % 0.3 %; Eosinophils % 0.6 %; Hematocrit 36.3 % (37.0-47.0); Hemoglobin 11.8 g/dL (11.5-15.3); Lymphocytes # 1.5 10^3/uL (0.8-4.8); Lymphocytes % 23.2 %; Mean Corpuscular HGB Conc 32.5 g/dL (30.0-36.0); Mean Corpuscular Hemoglobin 26.9 pg (28.0-34.0); Mean Corpuscular Volume 82.7 fl (81-99); Monocytes # 0.3 10^3/uL (0.2-0.9); Monocytes % 4.6 %; Neutrophils # 4.42 10^3/uL (1.8-7.7); Nucleated Red Blood Cells % 0 %; Platelet Count 223 10^3/cmm (130-400); Red Blood Count 4.39 10^6/uL (4.1-5.3); Red Cell Distribution Width 13.5 % (12.1-15.1); White Blood Count 6.2 10^3/uL (4.0-10.0)
--- NOTE | 2021-11-07 09:15 | P.ANESASSM_ITS ---
Pre-Anesthetic Assessment Height/Weight: Height 1.75 m Weight 129.274 kg Temp Pulse Resp BP Pulse Ox 98.9 F 95 16 153/60 98 11/07/21 08:12 11/07/21 08:12 11/07/21 08:12 11/07/21 08:12 11/07/21 08:12 Preop Diagnosis: Endometrial polyp Operation Date: 11/07/21 09:50 Proposed Procedures p Hysteroscopy, dilation and curettage with polypectomy 99612, 59490, 44350/N84.0(Not Applicable) - Nicho Aleman MD s Dilation And Curettage (D&C)(Not Applicable) - Nicho Aleman MD Familial anesthetic complications: None Was Beta Milind taken within 24 hours: N/A Was Clonidine taken within 24 hours: N/A Last intake: Intake Last Liquid Date 11/06/21 Last Liquid Time 20:30 Last Solid Date 11/06/21 Last Solid Time 20:30 Social No alcohol and No tobacco Exam alert, oriented x 3, clear to auscultation bilaterally and regular rate & rhythm Airway Submandibular: within normal limits Cervical ROM: within normal limits Mallampati: Class II Dentition: full Metabolic Morbid Obesity Neuropsych Anxiety and Depression Anesthetic Plan ASA status: 2 Anesthesia: General Medications/Allergies Home Medications Medication Instructions Recorded Confirmed Last Taken Type No Known Home Medications 11/06/21 11/06/21 Unknown History Allergies Allergy/AdvReac Type Severity Reaction Status Date / Time doxycycline AdvReac Unknown ADR-Gastrointestinal Verified 11/06/21 11:57 Upset Current Medications Generic Name Dose Route Start Last Admin Trade Name Bibi PRN Reason Stop Dose Admin Sodium Chloride 1,000 mls @ 30 mls/hr 11/07/21 08:15 11/07/21 08:24 Sodium Chloride 0.9% IV 11/08/21 08:14 30 mls/hr .Q24H BERTRAND Administration PFSH Anesthesia Medical History Anxiety and depression Symptomatic on and off since her 20s but has never been on any medic patient Infertility States that she has been trying to get since 2012 and underwent evaluation in [address] Nolan with multiple test that were all negative. She finally gave up on trying to get which is when she got in 2020. No pertinent past medical history Denies diabetes, asthma, hypertension, seizures, DVT/PE. PMD: Polina Francis PCOS (polycystic ovarian syndrome) Diagnosed in 2014---reports she was diagnosed on an ultrasound in Dr. Nolan's office in [place].. This is a questionable diagnosis because she states she is always had regular 30-day cycles. We will reassess this Surgical History History of tonsillectomy Age of 1 Status post delivery 01/01/2021---primary low transverse delivery by Dr. Aguilera for arrest of dilation and descent at 7 cm. Likely CPD ----Double layer closure, low transverse uterine incision, 1 cm left inferior extension Family History Grandfather Colon cancer Paternal-- Dx age 72 Grandmother Diabetes Maternal Mother Hypertension Denies family history of Ovarian cancer Heart disease Breast cancer Uterine cancer Thyroid disease Stroke Female Reproductive History Date of last menstrual period: 09/26/21 Data Anesthesia : 11/07/21 08:34 Short CBC 11/07/21 Range/Units 08:34 WBC 6.2 (4.0-10.0) 10^3/uL Hgb 11.8 (11.5-15.3) g/dL Hct 36.3 L (37.0-47.0) % MCV 82.7 (81-99) fl Plt Count 223 (130-400) 10^3/cmm Neut % (Auto) 71.0 % Neut # (Auto) 4.42 (1.8-7.7) 10^3/uL Cardiac Studies: No Data to Display
[2021-11-07] MEDS: ondansetron 2 mg/ML SDV 2 mL 4 MG IVP (09:17)
[2021-11-07] MEDS: diphenhydrAMINE 50 mg/mL SDV 1mL 12.5 MG IVP (09:20)
[2021-11-07] MEDS: midazolam 1 mg/mL INJ 2 mL 2 MG IVP (09:54)
--- NOTE | 2021-11-07 09:56 | W.PM.OPSUD ---
Surgery/Procedure H&P Update DATE OF PROCEDURE: November 07, 2021 DATE H&P PERFORMED: 10/30/21 H&P UPDATE INFORMATION: I have reviewed H&P completed within last 30 days, I have examined patient prior to procedure, No changes to prior documentation and H&P is in [facility] EMR on date indicated PREOP DIAGNOSIS: Endometrial polyp PLANNED PROCEDURE: Operation Date: 11/07/21 09:50 Proposed Procedures p Hysteroscopy, dilation and curettage with polypectomy 68843, 95570, 12306/N84.0(Not Applicable) - Nicho Aleman MD s Dilation And Curettage (D&C)(Not Applicable) - Nicho Aleman MD
[2021-11-07] MEDS: silver nitrate applicator 1 EACH TOPICAL (10:52)
--- NOTE | 2021-11-07 11:03 | PM.OP ---
Operative Report Date of procedure: November 07, 2021 OPERATIVE REPORT Date of surgery: 11/07/2021 Date of dictation: 11/07/2021 Preoperative diagnosis: Possible endometrial/endocervical polyp Postoperative diagnosis/findings: Examination under anesthesia revealed an 8-week size anteverted to mid position uterus, no adnexal masses. Same-no obvious growths-thickened endometrial tissue, bilateral ostia visualized and normal Procedure done: Hysteroscopy, dilation and fractional curettage Specimens removed/disposition of specimens: Endocervical curettage, endometrial curettings Surgeon: Dr. Nicho Aguilera Physician events assistant: Karoline Anesthesia: Laryngeal mask anesthesia Estimated blood loss: Less than 25 ml Intravenous fluids: 600 mL of LR Urine output: 250 mL of clear urine prior to procedure Medications: As per anesthesia records Complications: None, patient was taken to the recovery room in a stable condition PROCEDURE: After consent was obtained patient was taken to the operating room where she is placed under laryngeal mask anesthesia without any difficulty. She was placed supine on the table in lithotomy position. Care was taken to ensure that her legs were well positioned to avoid pressure points. She was then prepped and draped in the usual sterile fashion. Exam under anesthesia was done at this time which showed findings noted above. The weighted speculum and lateral vaginal wall retractors were placed in the vagina and the cervix was visualized. Cervix appeared normal. The cervix was dilated to a 15 Feng dilator. This allowed placement of a 3 mm hysteroscope into the uterine cavity without any difficulty. Once the hysteroscope was placed in the uterine cavity, the endocervical canal was visualized and appeared normal with thickened tissue-no polyp noted uterine cavity was visualized and findings noted above-no polyp with thickened tissue. The hysteroscope was removed. Fractional curettage was performed with the endocervix being curetted first followed by the endometrium using a curette. Both endocervical and endometrial curettings were sent to pathology . No active bleeding was noted from the cervix. Tenaculum was removed and hemostasis was achieved with silver nitrate. Good hemostasis was achieved. All instruments were removed from the vagina. Patient was cleaned well and anesthesia was reversed without any difficulty. She was taken to the recovery in a stable condition. FOLLOW UP: Follow-up in 2 weeks and 6 weeks with surgeon MEDICATION ON DISCHARGE: Colace 100 mg by mouth every 12 hours when necessary constipation, 30 tablets, no refills Ibuprofen 800 mg by mouth every 8 hours when necessary pain, 3 hysteroscopy dictation tablets, no refills. Continue other home medication DISPOSITION: Home in a stable condition This documentation was created by [employer] engineering specialist technician software (known for inherent engineering specialist technician error). Every effort was made to assure accuracy of engineering specialist technician. Any obvious errors or omissions should be clarified with the author of the document. Pre-op diagnosis: Preop Diagnosis Endometrial polyp
--- NOTE | 2021-11-07 13:47 | ANE.PACU2 ---
Inpatient post-anesthesia follow up: Airway intact: Yes Vital signs: Temperature 97.3 F Pulse Rate 74 Respiratory Rate 16 Blood Pressure 106/81 Pulse Oximetry 98 Oxygen Delivery Me thod Room Air Oxygen Flow Rate Fraction of Inspir ed Oxygen Hydration adequate: Yes Nausea and vomiting: No Pain level: 2 Mental status: Baseline
== END 2021-11-07 11:57 | disposition home or self-care (01) ==
PROVIDERS: Anesthesiology; PCP Nurse Practitioner Family; Visit Provider Obstetrics & Gynecology
PROC: 0UJD8ZZ Inspection of Uterus and Cervix, Via Natural or Artificial Opening Endoscopic (ICD-10-PCS; CPT 58555; principal; 2021-11-07 09:40)
PROC: (CPT 58120; 2021-11-07 09:40)
DX: N84.0 Polyp of corpus uteri (principal)
CPT/HCPCS: 58558; 36415; 81025; 84703; 85025; 86850; 86900; 88305; J1200; J2250; J2405; J2704; J3010; J7030

== ENCOUNTER → 2021-11-21 13:21 | Outpatient (BNVA) | payer BC, SELFPAY | PROVIDERS: PCP Nurse Practitioner Family; Visit Provider Nurse Practitioner Family | DX: R10.9 Unspecified abdominal pain (principal) | CPT/HCPCS: 81000; 81002; 87086 ==

== ENCOUNTER 2021-12-18 06:04 | Outpatient (CLI) | payer BC, SELFPAY ==
--- NOTE | 2021-12-18 | US_ITS ---
WS: [id number] Limited abdomen ultrasound. HISTORY: Umbilical pain. Evaluate for hernia. Ultrasound directed over the anterior abdominal wall. There is a focal defect within the anterior abd ominal wall containing what appears to be fat. No herniation of bowel loops. US/US abdomen limited 14014 IMPRESSION: No herniation of GI tract at the umbilicus during this exam. There does appear to be a small umbilical hernia containing fat. To confirm these findings consid er CT evaluation.
== END 2021-12-18 06:05 | disposition home or self-care (01) ==
PROVIDERS: PCP Nurse Practitioner Family; Visit Provider Nurse Practitioner Family
DX: R10.9 Unspecified abdominal pain (principal)
CPT/HCPCS: 76705

== ENCOUNTER → 2022-08-04 14:48 | Outpatient (BNVA) | payer BC, SELFPAY | PROVIDERS: PCP Clinical Nurse Specialist Adult Health; Visit Provider Clinical Nurse Specialist Adult Health | DX: R35.0 Frequency of micturition (principal); N30.01 Acute cystitis with hematuria | CPT/HCPCS: 81000; 87077; 87086; 87184 ==

== ENCOUNTER → 2023-07-22 14:21 | Outpatient (BNVA) | payer BC, SELFPAY | PROVIDERS: PCP Clinical Nurse Specialist Adult Health; Visit Provider Clinical Nurse Specialist Adult Health | DX: Z00.00 Encounter for general adult medical examination without abnormal findings (principal) | CPT/HCPCS: 80053; 80061; 84443; 85025; 86140 ==

== ENCOUNTER → 2023-07-24 11:19 | Outpatient (BNVA) | payer BC, SELFPAY | PROVIDERS: PCP Clinical Nurse Specialist Adult Health; Visit Provider Clinical Nurse Specialist Adult Health | DX: Z00.00 Encounter for general adult medical examination without abnormal findings (principal); E10.9 Type 1 diabetes mellitus without complications; I10 Essential (primary) hypertension | CPT/HCPCS: 80053; 80061; 84443; 85025; 86140 ==

== ENCOUNTER → 2023-07-30 13:30 | Outpatient (BNVA) | payer BC, SELFPAY | PROVIDERS: PCP Clinical Nurse Specialist Adult Health; Visit Provider Clinical Nurse Specialist Adult Health | DX: D50.9 Iron deficiency anemia, unspecified (principal) | CPT/HCPCS: 82607; 82728; 83540; 83550 ==

== ENCOUNTER 2023-09-20 12:17 | Emergency (ER) | payer BC, SELFPAY ==
[2023-09-20 12:21] VITALS: BP 113/81; PULSE 92; TEMP 36.4; O2SAT 97; BMI 39.0
[2023-09-20] MEDS: famotidine 20 mg/2 mL INJ IVP (12:41)
[2023-09-20] MEDS: methylPREDNISolone sod succ 125 mg/2 mL INJ IVP (12:41)
[2023-09-20] MEDS: diphenhydrAMINE 50 mg/mL SDV 1mL IVP (12:41)
[2023-09-20 13:05] LABS: Basophils % 0.1 %; Eosinophils # 0.1 10^3/uL (0.0-0.8); Eosinophils % 1.1 %; Hematocrit 39.8 % (36-47); Lymphocytes # 3.4 10^3/uL (0.8-4.8); Lymphocytes % 40.2 %; Mean Corpuscular HGB Conc 32.4 g/dL (30-55); Mean Corpuscular Hemoglobin 26.1 pg (27-33); Mean Corpuscular Volume 80.4 fl (85-98); Mean Platelet Volume 10.2 fL (7.4-10.4); Monocytes # 0.3 10^3/uL (0.2-0.9); Monocytes % 3.4 %; Nucleated Red Blood Cells % 0 %; Platelet Count 292 10^3/cmm (157-399); Red Blood Count 4.95 10^6/uL (3.85-5.65); Red Cell Distribution Width 13.4 % (12.1-15.1); White Blood Count 8.55 10^3/uL (3.29-11.43)
[2023-09-20 13:25] LABS: Alanine Aminotransferase 39 U/L (0-33); Albumin Level 4.1 g/dL (3.5-5.2); Alkaline Phosphatase 66 U/L (35-105); Anion Gap 17.3 (5-19); Aspartate Amino Transferase 31 U/L (0-32); Blood Urea Nitrogen 14 mg/dL (6-20); Calcium 8.9 mg/dL (8.5-10.5); Carbon Dioxide 20 mmol/L (22-29); Chloride 103 mmol/L (98-107); Creatinine Clr Calc Pharmacy 147.2923; Globulin 2.5 g/dL (1.3-4.6); Glomerular Filtration Rate 82.6 mL/min (90-130); Glucose 188 mg/dL (65-115); Lipase 27 U/L (13-60); Osmolality Calculated 289 mOsm/kg (285-295); Potassium 3.3 mmol/L (3.5-5.1); Sodium 137 mmol/L (136-145); Total Bilirubin 0.5 mg/dL (0.15-1.2); Total Protein 6.6 g/dL (6.6-8.7)
[2023-09-20] MEDS: ketorolac 30 mg/mL INJ IVP (13:26)
--- NOTE | 2023-09-20 13:54 | ED_ITS ---
HPI - Allergic Reaction 2 General: Chief complaint: Allergic Reaction Stated complaint: allergic reaction Time Seen by Provider: 09/20/23 12:32 History of Present Illness: HPI narrative: Patient presents to the ER with complaints of having allergic reaction. Patient is unsure what caused the symptoms. Her symptoms are hives facial and body swelling, tongue swelling, abdominal pain. This time patient was eating an [email or web address] restaurant just prior to the allergic reaction. She was eating steak tacos and ice tea which she has had eaten before. About 3 days ago while she was in [place] she had a's very similar episode and she was on for sure what caused then. Patient is already taken 25 mg of Benadryl prior to arrival. Patient has not had these episodes prior to these 2 episodes. She is not aware that she is allergic to anything other than doxycycline. Review of Systems 2 General: Reports: 10 or more systems reviewed and unremarkable except in HPI and below PFSH ED 2 PFSH: Medical History Anxiety and depression Symptomatic on and off since her 20s but has never been on any medic patient Infertility States that she has been trying to get since 2012 and underwent evaluation in [address] Nolan with multiple test that were all negative. She finally gave up on trying to get which is when she got in 2019. No pertinent past medical history Denies diabetes, asthma, hypertension, seizures, DVT/PE. PMD: Polina Francis PCOS (polycystic ovarian syndrome) Diagnosed in 2014---reports she was diagnosed on an ultrasound in Dr. Nolan's office in [place].. This is a questionable diagnosis because she states she is always had regular 30-day cycles. We will reassess this Surgical History Status post hysteroscopy 11/07/2021---hysteroscopy with fractional curettage done for endometrial growth noted on ultrasound. Perform by Dr. Aguilera at [facility] [place]. ---> Thick fluffy endometrium noted without any clear polyp formation. Pathology pending-----> endocervical curettings-benign endocervical mucosa. Endometrial curetting disordered proliferative endometrium with polyp formation without chronic endometritis or hyperplasia. Status post delivery 01/01/2021---primary low transverse delivery by Dr. Aguilera for arrest of dilation and descent at 7 cm. Likely CPD ----Double layer closure, low transverse uterine incision, 1 cm left inferior extension History of tonsillectomy Age of 1 Family History Grandfather Colon cancer Paternal-- Dx age 72 Grandmother Diabetes Maternal Mother Hypertension Denies family history of Ovarian cancer Heart disease Breast cancer Uterine cancer Thyroid disease Stroke Social History Substance/Drug Use: never Physical Exam 2 Const: COMMON NORMALS: no acute distress, average body habitus, patient oriented x3, no limitations, healthy appearing, alert and well nourished HENMT: COMMON NORMALS: normocephalic, atraumatic, hearing grossly normal bilaterally, external ears normal, Normal external nose present, moist oral mucous membranes and oropharynx normal HEAD & SCALP: normocephalic and atraumatic NOSE: Normal external nose present EXTERNAL EAR: Yes external ears normal Neck/C-Spine: COMMON NORMALS: full ROM, no lymphadenopathy, supple, no meningeal signs, no JVD and Thyroid normal THYROID: Thyroid normal Lymph: LYMPHATIC: no lymphadenopathy noted Chest: COMMONS NORMALS: normal inspection of the chest and normal palpation of entire chest wall Resp: COMMON NORMALS: normal respiratory effort, No retractions, No use of accessory muscles and clear to auscultation bilaterally AUSCULTATION: clear to auscultation bilaterally Cardio: COMMON NORMALS: no JVD, regular rate, regular rhythm, S1 normal heart sound present, S2 normal heart sound present, No gallops present (Cardio), No clicks present (Cardio), No murmurs present (Cardio) and No rub (Cardio) R ATE: regular rate RHYTHM: regular rhythm HEART SOUNDS: S1 normal heart sound present and S2 normal heart sound present GI: COMMON NORMALS: Normal to inspection, nondistended, normoactive bowel sounds present, Soft to palpation, non-tender, No hepatosplenomegaly present and no masses PALPATION: Yes Soft to palpation and Yes No hepatosplenomegaly present Neuro: COMMON NORMALS: patient oriented x3 SENSORIUM/ORIENTATION: Yes alert MENINGEAL SIGNS: Yes no meningeal signs Course 2 Vital Signs: Vital signs: Vital Signs Temperature 97.6 F 09/20/23 12:21 Pulse Rate 92 09/20/23 12:21 Blood Pressure 113/81 09/20/23 12:21 Pulse Oximetry 97 09/20/23 12:21 Oxygen Delivery Me thod Room Air 09/20/23 12:21 MDM - Allergic Reaction Medical Decision Making Patient was given 20 mg Pepcid, 50 mg Benadryl, 125 mg Solu-Medrol all IV which reduced the patient's allergic type symptoms. Patient was still having lower abdominal pain in which she was given a total of 30 mg Toradol. Now patient is pain-free and asking for did an EpiPen. Patient will be discharged to follow back up with her PCP for further testing and we will provide a prescription for an EpiPen for worst-case scenario if this happens again. Differential Diagnosis Likely allergic reaction; Unlikely anaphylaxis, angioedema, contact dermatitis, adverse reaction to drug, viral enanthem or urticaria Medical Records I reviewed the patient's medical records. Lab Data I reviewed the patient's lab results. 09/20/23 12:57 09/20/23 12:57 Laboratory Results WBC 8.55 10^3/uL (3.29-11.43) 09/20/23 12:57 RBC 4.95 10^6/uL (3.85-5.65) 09/20/23 12:57 Hgb 12.90 g/dL (11.27-16.99) 09/20/23 12:57 Hct 39.8 % (36-47) 09/20/23 12:57 MCV 80.4 fl (85-98) L 09/20/23 12:57 MCH 26.1 pg (27-33) L 09/20/23 12:57 MCHC 32.4 g/dL (30-55) 09/20/23 12:57 RDW 13.4 % (12.1-15.1) 09/20/23 12:57 Plt Count 292 10^3/cmm (157-399) 09/20/23 12:57 MPV 10.2 fL (7.4-10.4) 09/20/23 12:57 Neut % (Auto) 55.0 % 09/20/23 12:57 Lymph % (Auto) 40.2 % 09/20/23 12:57 Rincon % (Auto) 3.4 % 09/20/23 12:57 Eos % (Auto) 1.1 % 09/20/23 12:57 Baso % (Auto) 0.1 % 09/20/23 12:57 Neut # (Auto) 4.70 10^3/uL (1.8-7.7) 09/20/23 12:57 Lymph # (Auto) 3.4 10^3/uL (0.8-4.8) 09/20/23 12:57 Rincon # (Auto) 0.3 10^3/uL (0.2-0.9) 09/20/23 12:57 Eos # (Auto) 0.1 10^3/uL (0.0-0.8) 09/20/23 12:57 Baso # (Auto) 0.0 10^3/uL (0.0-0.1) 09/20/23 12:57 Nucleated RBC % (auto) 0 % 09/20/23 12:57 Nucleated RBCs # 0.0 /100WBC 09/20/23 12:57 Sodium 137 mmol/L (136-145) 09/20/23 12:57 Potassium 3.3 mmol/L (3.5-5.1) L 09/20/23 12:57 Chloride 103 mmol/L (98-107) 09/20/23 12:57 Carbon Dioxide 20 mmol/L (22-29) L 09/20/23 12:57 Anion Gap 17.3 (5-19) 09/20/23 12:57 BUN 14 mg/dL (6-20) 09/20/23 12:57 Creatinine 0.8 mg/dL (0.5-0.9) 09/20/23 12:57 GFR Calculation 82.6 mL/min (90-130) L 09/20/23 12:57 Glucose 188 mg/dL (65-115) H 09/20/23 12:57 Calculated Osmolality 289 mOsm/kg (285-295) 09/20/23 12:57 Calcium 8.9 mg/dL (8.5-10.5) 09/20/23 12:57 Total Bilirubin 0.5 mg/dL (0.15-1.2) 09/20/23 12:57 AST 31 U/L (0-32) 09/20/23 12:57 ALT 39 U/L (0-33) H 09/20/23 12:57 Alkaline Phosphatase 66 U/L (35-105) 09/20/23 12:57 Total Protein 6.6 g/dL (6.6-8.7) 09/20/23 12:57 Albumin 4.1 g/dL (3.5-5.2) 09/20/23 12:57 Globulin 2.5 g/dL (1.3-4.6) 09/20/23 12:57 Lipase 27 U/L (13-60) 09/20/23 12:57 No radiology studies performed this visit Discharge Plan Discharge Patient Disposition: Home Clinical Impression: Allergic reaction Qualifiers: Encounter type: initial encounter Qualified Code(s): T78.40XA - Allergy, unspecified, initial encounter Condition: Stable Prescriptions: New EpiPen 2-Romel 0.3 mg/0.3 mL auto-injector 0.3 mg IM Q10M PRN (Reason: anaphylaxis) Qty: 2 0RF Rx Instructions: for 2 doses No Action fluticasone propionate 50 mcg/actuation spray,suspension 2 spray intranasal DAILY Qty: 16 6RF Rx Instructions: administer into each nostril Discharge Orders: Discharge ED (Routine); Ordered 09/20/23 Ordered By: Antonoi Roper Referrals: Liam Bashir NP [Primary Care Provider] - 1 week Patient Instructions: Allergic Reaction Activity Restrictions/Additional Instructions: Please follow-up with your family practitioner for further evaluation testing and possible referral to customer support agent. A prescription for an EpiPen was sent to your pharmacy. Follow the instructions on this and only use it for severe cases. Coding Level of Care Code ED Streetcar Dispatcher for Elle Fraser
== END 2023-09-20 14:41 | disposition home or self-care (01) ==
PROVIDERS: Emergency Provider Emergency Medicine; PCP Clinical Nurse Specialist Adult Health
DX: T78.40XA Allergy, unspecified, initial encounter (principal); X58.XXXA Exposure to other specified factors, initial encounter
CPT/HCPCS: 36415; 80053; 83690; 85025; 96374; 96375; 99284; J1200; J1885; J2930; J3490

== ENCOUNTER → 2023-09-21 08:58 | Outpatient (BNVA) | payer BC, SELFPAY | PROVIDERS: PCP Clinical Nurse Specialist Adult Health; Visit Provider Clinical Nurse Specialist Adult Health | DX: T78.40XA Allergy, unspecified, initial encounter (principal); Z00.00 Encounter for general adult medical examination without abnormal findings | CPT/HCPCS: 80053; 80061; 84443; 85025; 86003; 86008; 86140 ==

== ENCOUNTER → 2023-10-07 15:29 | Outpatient (BNVA) | payer BC, SELFPAY | PROVIDERS: PCP Clinical Nurse Specialist Adult Health; Visit Provider Clinical Nurse Specialist Adult Health | DX: T78.40XA Allergy, unspecified, initial encounter (principal) | CPT/HCPCS: 86003; 86008 ==

== ENCOUNTER 2023-10-31 16:12 | Emergency (ER) | payer BC, SELFPAY ==
[2023-10-31] VITALS (7 sets, daily range): BP systolic 127; BP diastolic 76; PULSE 100–145; RESP 16–28; TEMP 36.8; O2SAT 98–100; BMI 39.6
--- NOTE | 2023-10-31 16:51 | ED_ITS ---
Documented by User: Matthew De Leon DO 11/01/23 09:57 HPI - Allergic Reaction General: Chief complaint: Allergic Reaction Stated complaint: allergic reaction, sob Time Seen by Provider: 10/31/23 16:25 Source: patient and family Mode of arrival: ambulatory Limitations: no limitations History of Present Illness: HPI narrative: This patient with a suspected history of alpha gal syndrome presents to the emergency department with facial swelling some wheezing its progressed over the past several hours. She apparently ate tacos with meat sauce as well as some chicken in the last 12 hours. She has some seasonal allergies which were bothering her yesterday and she took a Zyrtec but has not taken any antihistamines today. She does not have a history of asthma. There is no family history of other allergic or idiosyncratic reactions. She takes no usual daily medications. MD complaint: allergic reaction Exposure: food Associated symptoms: Reports facial swelling and lip swelling; Deny abdominal pain, nausea or vomiting Severity: moderate Treatment prior to arrival: none Previous Allergic Reaction History: prior ED visit(s) Review of Systems Const: Denies: fever(s) or chills Eyes: Denies: change in vision ENMT: Reports: nasal congestion; Denies: odynophagia Card: Denies: chest pain, palpitations or irregular heart rhythm Resp: Reports: wheezing; Denies: dyspnea, productive cough or non-productive cough GI: Denies: abdominal pain, nausea or vomiting : Denies: flank pain or difficulty voiding Musc: Denies: neck pain, back pain or extremity pain Skin/Breast: Reports: pruritus and erythema Neuro: Denies: headache(s), numbness in extremities or weakness in extremities All/Imm: Reports: facial swelling PFSH ED PFSH: Medical History Morbid obesity due to excess calories Anxiety and depression Symptomatic on and off since her 20s but has never been on any medic patient Infertility States that she has been trying to get since 2012 and underwent evaluation in [address] Nolan with multiple test that were all negative. She finally gave up on trying to get which is when she got in 2020. No pertinent past medical history Denies diabetes, asthma, hypertension, seizures, DVT/PE. PCOS (polycystic ovarian syndrome) Diagnosed in 2014---reports she was diagnosed on an ultrasound in Dr. Nolan's office in [place].. This is a questionable diagnosis because she states she is always had regular 30-day cycles. We will reassess this Surgical History Status post hysteroscopy 11/07/2021---hysteroscopy with fractional curettage done for endometrial growth noted on ultrasound. Perform by Dr. Aguilera at [facility] [place]. ---> Thick fluffy endometrium noted without any clear polyp formation. Pathology pending-----> endocervical curettings-benign endocervical mucosa. Endometrial curetting disordered proliferative endometrium with polyp formation without chronic endometritis or hyperplasia. Status post delivery 01/01/2021---primary low transverse delivery by Dr. Aguilera for arrest of dilation and descent at 7 cm. Likely CPD ----Double layer closure, low transverse uterine incision, 1 cm left inferior extension History of tonsillectomy Age of 1 Family History Grandfather Colon cancer Paternal-- Dx age 72 Grandmother Diabetes Maternal Mother Hypertension Denies family history of Ovarian cancer Heart disease Breast cancer Uterine cancer Thyroid disease Stroke Social History (Updated 10/26/23 @ 07:46 by Liam Bashir NP) Smoking and tobacco/nicotine status: never used tobacco/nicotine Alcohol intake: never Substance/Drug Use: never Physical Exam Narrative: EXAM NARRATIVE: Patient obviously has some swelling in the periorbital region but is able to talk in complete sentences without any dyspnea stridor or wheezing Const: COMMON NORMALS: patient oriented x3 and alert NUTRITIONAL APPEARANCE: overweight HENMT: COMMON NORMALS: normocephalic, atraumatic, external ears normal, Normal nasal mucous membranes and turbinates present, moist oral mucous membranes and oropharynx normal HEAD & SCALP: normocephalic and atraumatic FACE & SINUS: face symmetric and erythema NOSE: Normal nasal mucous membranes and turbinates present EXTERNAL EAR: Yes external ears normal Eye: COMMON NORMALS: Equal, round and reactive pupils present, EOMs intact bilaterally and conjunctivae normal CONJUNCTIVA: Yes conjunctivae normal PUPIL: Yes Equal, round and reactive pupils present Neck/C-Spine: COMMON NORMALS: full ROM, no lymphadenopathy and supple Chest: COMMONS NORMALS: normal inspection of the chest Resp: COMMON NORMALS: normal respiratory effort, No retractions and No use of accessory muscles AUSCULTATION: wheezes Cardio: COMMON NORMALS: regular rate, regular rhythm and No murmurs present (Cardio) RATE: regular rate and tachycardic RHYTHM: regular rhythm GI: COMMON NORMALS: Normal to inspection, nondistended, normoactive bowel sounds present, Soft to palpation and non-tender PALPATION: Yes Soft to palpation : COMMON NORMALS: Yes no CVA tenderness BLADDER/KIDNEY EXAM: Yes no CVA tenderness Back/Pelvis: COMMON NORMALS: no CVA tenderness, thoracic and lumbar spine normal to inspection, no thoracic nor lumbar tenderness and thoraco-lumbar ROM normal Extremity: COMMON NORMALS: normal to inspection, full ROM, capillary refill normal, no calf tenderness and no pedal edema Neuro: COMMON NORMALS: patient oriented x3, moves all extremities, no focal motor deficits and no sensory deficits noted SENSORIUM/ORIENTATION: Yes alert Psych: COMMON NORMALS: mental status grossly normal Skin: NARRATIVE SKIN EXAM: Erythema of the face which is confluent. Course Reevaluation(s): Reevaluation #1: Patient refused IM epi. She stated that she would allow Solu-Medrol and other medications but she did not want the epinephrine. Had a very detailed and explicit discussion regarding the usual care usually includes epinephrine to help counterbalance the effects of histamine release. I also discussed the fact that failure to allow us to give her epinephrine might jeopardize her health and wellbeing and her continued current lifestyle to include loss of airway etc. I have engaged spouse as well as her mother who is now arrived to attempt to convince her otherwise. Time: 17:06 Reevaluation #2: Patient still refusing epinephrine injection. She has received steroids fluids albuterol and states she is feeling some better but still has some swelling. I again encouraged her to take the epinephrine and she is contemplating it. Reassuringly she has not progressed since my initial evaluation and has recently improved somewhat with lessening swelling and redness. Time: 17:44 Reevaluation #3: turned over to Dr Bower for dispo. She continues to be stable and not want the epi Time: 18:01 Vital Signs: Vital signs: Vital Signs Temperature 98.2 F 10/31/23 16:16 Pulse Rate 100 10/31/23 18:41 Respiratory Rate 16 05/11/24 18:30 Blood Pressure 127/76 10/31/23 16:16 Pulse Oximetry 100 10/31/23 18:41 Oxygen Delivery Me thod Room Air 10/31/23 18:30 Discharge Plan Discharge Patient Disposition: Home Clinical Impression: Allergic reaction to alpha-gal Condition: Stable Prescriptions: New Medrol (Romel) 4 mg tablets,dose pack See Rx Instructions .ROUTE .COMPLEX Qty: 21 0RF Rx Instructions: orally per package directions No Action fluticasone propionate 50 mcg/actuation spray,suspension 2 spray intranasal DAILY Qty: 16 6RF Rx Instructions: administer into each nostril tazarotene 0.1 % cream topical Hold Instructions: Doctor's Order clindamycin phosphate 1 % solution topical Hold Instructions: Doctor's Order dapsone 5 % gel topical Hold Instructions: Doctor's Order pantoprazole 40 mg tablet,delayed release (DR/EC) 40 mg PO DAILY Qty: 30 6RF famotidine [Pepcid] 20 mg tablet 20 mg PO DAILY PRN (Reason: allergic reaction) Qty: 30 0RF prednisone 20 mg tablet 20 mg PO DAILY PRN (Reason: for allergic reaction) Qty: 5 0RF EpiPen 2-Romel 0.3 mg/0.3 mL auto-injector 0.3 mg IM Q10M PRN (Reason: anaphylaxis) Qty: 2 0RF Rx Instructions: for 2 doses Discharge Orders: Discharge ED (Routine); Ordered 10/31/23 Ordered By: Moe Boewr Referrals: Liam Bashir, HOLIDAY DETECTOR OPERATOR [Primary Care Provider] - 1-3 days Discharge Diet: As Directed Discharge Activity: Increase activity as tolerated Patient Instructions: Opioid Safety, Pain Management Activity Restrictions/Additional Instructions: You should avoid any mammalian meat products as if you have alpha gal allergy as you will have a potential reaction to these sources of protein. You should use your epinephrine pen should you have a significant reaction again. Steroid taper as directed to prevent rebound reaction. Coding Level of Care Code ED Risk Management Internship for Elle Fwd Documented by User: Moe Bower DO 10/31/23 21:40 HPI - Allergic Reaction General: Chief complaint: Allergic Reaction Stated complaint: allergic reaction, sob Time Seen by Provider: 10/31/23 16:25 PFSH ED PFSH: Medical History Morbid obesity due to excess calories Anxiety and depression Symptomatic on and off since her 20s but has never been on any medic patient Infertility States that she has been trying to get since 2012 and underwent evaluation in [address] Nolan with multiple test that were all negative. She finally gave up on trying to get which is when she got in 2019. No pertinent past medical history Denies diabetes, asthma, hypertension, seizures, DVT/PE. PCOS (polycystic ovarian syndrome) Diagnosed in 2014---reports she was diagnosed on an ultrasound in Dr. Nolan's office in [place].. This is a questionable diagnosis because she states she is always had regular 30-day cycles. We will reassess this Surgical History Status post hysteroscopy 11/07/2021---hysteroscopy with fractional curettage done for endometrial growth noted on ultrasound. Perform by Dr. Aguilera at [facility] [place]. ---> Thick fluffy endometrium noted without any clear polyp formation. Pathology pending-----> endocervical curettings-benign endocervical mucosa. Endometrial curetting disordered proliferative endometrium with polyp formation without chronic endometritis or hyperplasia. Status post delivery 01/01/2021---primary low transverse delivery by Dr. Aguilera for arr est of dilation and descent at 7 cm. Likely CPD ----Double layer closure, low transverse uterine incision, 1 cm left inferior extension History of tonsillectomy Age of 1 Family History Grandfather Colon cancer Paternal-- Dx age 72 Grandmother Diabetes Maternal Mother Hypertension Denies family history of Ovarian cancer Heart disease Breast cancer Uterine cancer Thyroid disease Stroke Social History (Updated 10/26/23 @ 07:46 by Liam Bashir NP) Smoking and tobacco/nicotine status: never used tobacco/nicotine Alcohol intake: never Substance/Drug Use: never Course Vital Signs: Vital signs: Vital Signs Temperature 98.2 F 10/31/23 16:16 Pulse Rate 100 10/31/23 18:41 Respiratory Rate 16 10/31/23 18:30 Blood Pressure 127/76 10/31/23 16:16 Pulse Oximetry 100 10/31/23 18:41 Oxygen Delivery Me thod Room Air 10/31/23 18:30 MDM - Allergic Reaction Medical Decision Making Patient received in checkout at shift change. She declined the epinephrine. She was warned by the previous physician that this may cause her to have worsening symptoms, as epinephrine is really the only proven treatment for anaphylaxis. She did receive Pepcid, Solu-Medrol, albuterol. She is improving. She will be discharged on antihistamines, steroid taper. She has been here for 2.5 hours, without worsening symptoms. No radiology studies performed this visit Discharge Plan Discharge Patient Disposition: Home Clinical Impression: Allergic reaction to alpha-gal Condition: Stable Prescriptions: New Medrol (Romel) 4 mg tablets,dose pack See Rx Instructions .ROUTE .COMPLEX Qty: 21 0RF Rx Instructions: orally per package directions No Action fluticasone propionate 50 mcg/actuation spray,suspension 2 spray intranasal DAILY Qty: 16 6RF Rx Instructions: administer into each nostril tazarotene 0.1 % cream topical Hold Instructions: Doctor's Order clindamycin phosphate 1 % solution topical Hold Instructions: Doctor's Order dapsone 5 % gel topical Hold Instructions: Doctor's Order pantoprazole 40 mg tablet,delayed release (DR/EC) 40 mg PO DAILY Qty: 30 6RF famotidine [Pepcid] 20 mg tablet 20 mg PO DAILY PRN (Reason: allergic reaction) Qty: 30 0RF prednisone 20 mg tablet 20 mg PO DAILY PRN (Reason: for allergic reaction) Qty: 5 0RF EpiPen 2-Romel 0.3 mg/0.3 mL auto-injector 0.3 mg IM Q10M PRN (Reason: anaphylaxis) Qty: 2 0RF Rx Instructions: for 2 doses Discharge Orders: Discharge ED (Routine); Ordered 10/31/23 Ordered By: Moe Bower Referrals: Liam Bashir HOLIDAY DETECTOR OPERATOR [Primary Care Provider] - 1-3 days Discharge Diet: As Directed Discharge Activity: Increase activity as tolerated Patient Instructions: Opioid Safety, Pain Management Activity Restrictions/Additional Instructions: You should avoid any mammalian meat products as if you have alpha gal allergy as you will have a potential reaction to these sources of protein. You should use your epinephrine pen should you have a significant reaction again. Steroid taper as directed to prevent rebound reaction. Coding Level of Care Code ED Risk Management Internship for Elle Fraser
[2023-10-31] MEDS: albuterol 2.5 mg/3 mL Neb 10 MG INHALATION (16:59)
[2023-10-31] MEDS: methylPREDNISolone sod succ 125 mg/2 mL INJ IVP (17:01)
[2023-10-31] MEDS: famotidine 20 mg/2 mL INJ 40 MG IVP (17:03)
[2023-10-31] MEDS: sodium chloride 0.9% 1,000 ML 999 ML IV (17:04)
--- NOTE | 2023-10-31 17:32 | PC.NURSE ---
PT refused epi injection. physician educated pt on possible dangers of refusing medication and pt still declined
== END 2023-10-31 18:47 | disposition home or self-care (01) ==
PROVIDERS: Emergency Provider Emergency Medicine; PCP Clinical Nurse Specialist Adult Health
DX: T78.1XXA Other adverse food reactions, not elsewhere classified, initial encounter (principal); Z91.014 Allergy to mammalian meats; X58.XXXA Exposure to other specified factors, initial encounter
CPT/HCPCS: 94640; 96361; 96374; 96375; 99284; J2919; J3490; J7030; J7613